=== PATIENT | male | born 1970 | race Caucasian/White ===

== ENCOUNTER 2017-07-24 09:23 | Outpatient (CLI) | payer OTHER ==
[2017-07-24 09:40] LABS: BASOPHILS # (AUTO) 0.1 10^3/uL (0.0-0.1); EOSINOPHILS # (AUTO) 0.4 10^3/uL (0.0-0.7); EOSINOPHILS % (AUTO) 7.2 %; HGB - HEMOGLOBIN 14.4 g/dL (14.0-18.0); LYMPHOCYTES # (AUTO) 1.5 10^3/uL (1.5-3.5); LYMPHOCYTES % (AUTO) 29.5 %; MEAN CORPUSCULAR HEMOGLOBIN 28.1 pg (27.0-31.0); MEAN CORPUSCULAR HGB CONC 34.7 g/dL (32.0-36.0); MEAN CORPUSCULAR VOLUME 80.8 fL (80.0-94.0); MEAN PLATELET VOLUME 6.8 fL (7.4-11.4); MONOCYTES # (AUTO) 0.5 10^3/uL (0.0-1.0); NEUTROPHILS # (AUTO) 2.8 10^3/uL (1.5-6.6); NEUTROPHILS % (AUTO) 53.3 %; PLT - PLATELET COUNT 260 10^3/uL (130-450); RED BLOOD COUNT 5.13 10^6/uL (4.70-6.10); RED CELL DISTRIBUTION WIDTH 14.4 % (12.0-15.0); WHITE BLOOD COUNT 5.2 x10^3/uL (4.8-10.8)
[2017-07-24 10:06] LABS: ALBUMIN 4.1 g/dL (3.2-5.5); ALBUMIN/GLOBULIN RATIO 1.2 (1.0-2.2); ALKALINE PHOSPHATASE 62 IU/L (42-121); ALT ALANINE AMINOTRANSFERASE 30 IU/L (10-60); AST ASPARTATE AMINOTRANSFERASE 24 IU/L (10-42); BILIRUBIN,TOTAL 0.6 mg/dL (0.2-1.0); BUN - BLOOD UREA NITROGEN 30 mg/dL (6-20); CARBON DIOXIDE - CO2 23 mmol/L (21-32); CHLORIDE 104 mmol/L (101-111); CHOL/HDL RATIO 4.1 (<5.0); CHOLESTEROL 192 mg/dL; CREATININE 0.8 mg/dL (0.6-1.2); GFR - MDRD 104 (>89); GLUCOSE 101 mg/dL (70-100); HDL CHOLESTEROL 47 mg/dL; LDL CHOLESTEROL,CALCULATED 127 mg/dL; LDL/HDL RATIO 2.7 (<3.6); SODIUM 136 mmol/L (135-145); TOTAL PROTEIN 7.5 g/dL (6.7-8.2); VLDL CHOLESTEROL 18 mg/dL
== END 2017-07-24 09:24 | disposition home or self-care (01) ==
LOC: LAB 09:23
PROVIDERS: ATTEND Physician Assistant Medical
DX: Z00.00 Encounter for general adult medical examination without abnormal findings (principal); Z12.5 Encounter for screening for malignant neoplasm of prostate
CPT/HCPCS: 36415; 80053; 80061; 83721; 84153; 84443; 85025

== ENCOUNTER 2017-07-30 15:29 | Outpatient (CLI) | payer OTHER ==
--- NOTE | 2017-07-30 16:19 | XRAY Report ---
THREE VIEW LEFT THUMB: 07/30/2017 CLINICAL INDICATION: Laceration. FINDINGS: AP, lateral, and oblique views of the left thumb demonstrate a distal tuft fracture, without intraarticular extension. No foreign body is seen in the soft tissues. IMPRESSION: DISTAL TUFT FRACTURE OF THE LEFT THUMB. TD: 07/30/2017 16:18
== END 2017-07-30 15:30 | disposition home or self-care (01) ==
LOC: DI 15:29
PROVIDERS: ATTEND Physician Assistant Medical
DX: S62.522A Displaced fracture of distal phalanx of left thumb, initial encounter for closed fracture (principal)
CPT/HCPCS: 73140

== ENCOUNTER 2017-09-24 09:14 | Emergency (ER) | payer OTHER ==
--- NOTE | 2017-09-24 09:31 | ED Physician Documentation ---
PD HPI SKIN - Stated complaint Stated Complaint: SPIDER BITE ON FOOT - Chief complaint Chief Complaint: Ext Problem - History obtained from History obtained from: Patient - History of Present Illness Timing - onset: How many days ago (5) Timing - duration: Days (5) Timing - details: Gradual onset, Still present (and has gotten much larger size of redness, and has extra room for the moment.) Review of Systems Constitutional: denies: Fever, Chills, Myalgias Nose: denies: Rhinorrhea / runny nose, Congestion Throat: denies: Dental pain / toothache, Oral lesions / sores PD PAST MEDICAL HISTORY - Past Medical History Past Medical History: Yes Cardiovascular: Hypertension Respiratory: None Neuro: None - Past Surgical History Past Surgical History: Yes General: Appendectomy - Present Medications Home Medications: Ambulatory Orders Medication Instructions Recorded Confirmed Cephalexin [Keflex] 500 mg PO TID #21 capsule 09/24/17 Doxycycline Monohydrate 100 mg PO BID #14 tablet 09/24/17 Lisinopril/Hydrochlorothiazide 1 tab PO DAILY 09/24/17 09/24/17 [Lisinopril-Hctz 20-12.5 mg Tab] - Allergies Allergies/Adverse Reactions: Allergies Allergy/AdvReac Type Severity Reaction Status Date / Time sodium lauryl sulfate Allergy Hives Verified 09/24/17 09:24 - Social History Does the pt smoke?: No Smoking Status: Never smoker Does the pt drink ETOH?: No Does the pt have substance abuse?: No - Immunizations Immunizations are current?: Yes PD ED PE NORMAL - Vitals Vital signs reviewed: Yes - General General: Alert and oriented X 3, No acute distress, Well developed/nourished - Cardiac Cardiac: RRR, No murmur - Respiratory Respiratory: Clear bilaterally - Abdomen Abdomen: Normal bowel sounds, Soft, Non tender, Non distended - Male Male : Deferred - Rectal Rectal: Deferred - Back Back: No CVA TTP Results - Vitals Vitals: Vital Signs - 24 hr 09/24/17 09/24/17 09:19 10:12 Temperature 36.2 C L Heart Rate 78 80 Respiratory 16 20 Rate Blood Pressure 142/93 H 134/86 H O2 Saturation 98 98 Oxygen O2 Source Room air PD MEDICAL DECISION MAKING - ED course Complexity details: considered differential (could be spider bite or other puncture/wound that has gotten infection to it. ), d/w patient Departure - Departure Disposition: 01 Home, Self Care Clinical Impression: Cellulitis of foot without toes Condition: Stable Record reviewed to determine appropriate education?: Yes Instructions: ED Infec Skin Cellulitis Follow-Up: Crystal Bangura PA-C [Primary Care Provider] - Prescriptions: Cephalexin [Keflex] 500 mg PO TID #21 capsule Doxycycline Monohydrate 100 mg PO BID #14 tablet Comments: Elevate the foot and leg often. Warmth such as warm towels or moist warm packs to the area to improve blood flow to help fight off infection and do that a few times a day. Will treat with antibiotics to cover the most common skin infection bacteria; Keflex 3 times a day for a week and doxycycline 2 times a day for a week. Tylenol or ibuprofen if needed for pains. Recheck if not improved well over the next 2-3 days return sooner if worsening. Forms: Activity restrictions Discharge Date/Time: 09/24/17 10:20
[2017-09-24] MEDS ORDERED: cephALEXin 250 MG CAPSULE PO STA (09:50)
[2017-09-24] MEDS ORDERED: DOXYCYCLINE 100 MG TABLET PO STA (09:50)
[2017-09-24 10:13] VITALS: BP 134/86
== END 2017-09-24 10:20 | disposition home or self-care (01) ==
LOC: ED 09:14
DX: L03.119 Cellulitis of unspecified part of limb (principal); I10 Essential (primary) hypertension
CPT/HCPCS: 99283; A9270

== ENCOUNTER 2018-07-16 07:38 | Outpatient (CLI) | payer OTHER ==
[2018-07-16 08:17] LABS: ALBUMIN 4.2 g/dL (3.2-5.5); ALBUMIN/GLOBULIN RATIO 1.1 (1.0-2.2); ALKALINE PHOSPHATASE 60 IU/L (42-121); ALT ALANINE AMINOTRANSFERASE 34 IU/L (10-60); AST ASPARTATE AMINOTRANSFERASE 25 IU/L (10-42); BUN - BLOOD UREA NITROGEN 20 mg/dL (6-20); CALCIUM 9.2 mg/dL (8.5-10.3); CARBON DIOXIDE - CO2 24 mmol/L (21-32); CHLORIDE 99 mmol/L (101-111); CHOL/HDL RATIO 3.4 (<5.0); CHOLESTEROL 172 mg/dL; CREATININE 0.8 mg/dL (0.6-1.2); GFR - MDRD 103 (>89); GLUCOSE 109 mg/dL (70-100); HDL CHOLESTEROL 51 mg/dL; SODIUM 133 mmol/L (135-145); TOTAL PROTEIN 7.9 g/dL (6.7-8.2)
[2018-07-16 08:18] LABS: BASOPHILS % (AUTO) 0.5 %; EOSINOPHILS # (AUTO) 0.2 10^3/uL (0.0-0.7); EOSINOPHILS % (AUTO) 1.8 %; HGB - HEMOGLOBIN 13.7 g/dL (14.0-18.0); LYMPHOCYTES # (AUTO) 1.3 10^3/uL (1.5-3.5); LYMPHOCYTES % (AUTO) 15.1 %; MEAN CORPUSCULAR HEMOGLOBIN 28.6 pg (27.0-31.0); MEAN CORPUSCULAR HGB CONC 34.8 g/dL (32.0-36.0); MEAN CORPUSCULAR VOLUME 82.2 fL (80.0-94.0); MEAN PLATELET VOLUME 7.2 fL (7.4-11.4); MONOCYTES # (AUTO) 0.9 10^3/uL (0.0-1.0); MONOCYTES % (AUTO) 10.4 %; NEUTROPHILS # (AUTO) 6.4 10^3/uL (1.5-6.6); NEUTROPHILS % (AUTO) 72.2 %; PLT - PLATELET COUNT 271 10^3/uL (130-450); RED BLOOD COUNT 4.77 10^6/uL (4.70-6.10); RED CELL DISTRIBUTION WIDTH 14.1 % (12.0-15.0); WHITE BLOOD COUNT 8.8 x10^3/uL (4.8-10.8)
[2018-07-16 08:36] LABS: LDL CHOLESTEROL,DIRECT 115 mg/dL; LDLD/HDL RATIO 2.3 (<3.6)
== END 2018-07-16 07:39 | disposition home or self-care (01) ==
LOC: LAB 07:38
PROVIDERS: ATTEND Physician Assistant Medical
DX: Z00.00 Encounter for general adult medical examination without abnormal findings (principal); I10 Essential (primary) hypertension; Z12.5 Encounter for screening for malignant neoplasm of prostate
CPT/HCPCS: 36415; 80053; 80061; 83721; 84153; 84443; 85025

== ENCOUNTER 2018-08-23 08:00 | Outpatient (CLI) | payer OTHER ==
[2018-08-23 19:24] LABS: MEAN CORPUSCULAR HEMOGLOBIN 28.3 pg (27.0-31.0); MEAN CORPUSCULAR HGB CONC 34.7 g/dL (32.0-36.0); MEAN CORPUSCULAR VOLUME 81.4 fL (80.0-94.0); MEAN PLATELET VOLUME 7.7 fL (7.4-11.4); RED BLOOD COUNT 4.58 10^6/uL (4.70-6.10); RED CELL DISTRIBUTION WIDTH 14.9 % (12.0-15.0); WHITE BLOOD COUNT 9.3 x10^3/uL (4.8-10.8)
[2018-08-23 19:35] LABS: FERRITIN 162.3 ng/mL (23.9-336.2)
[2018-08-23 19:39] LABS: % IRON SATURATION 13 % (20-50); IRON 42 ug/dL (45-182); TOTAL IRON BINDING CAPACITY 316 ug/dL (250-450); TRANSFERRIN 226 mg/dL (180-329)
== END 2018-08-23 23:59 | disposition home or self-care (01) ==
LOC: LAB.WCP 08:00
PROVIDERS: ATTEND Physician Assistant Medical
DX: D64.9 Anemia, unspecified (principal)
CPT/HCPCS: 36415; 82607; 82728; 82746; 83540; 84466; 85027

== ENCOUNTER 2018-09-05 11:57 | Day surgery (SDC) | payer OTHER ==
[~2018-09-05 11:57] MED LIST: LIDO GARGLE 30 ML BOTTLE ONE
[2018-09-05] MEDS ORDERED: LACTATED RINGERS 1,000 ML IV ONE (12:30)
[2018-09-05] MEDS ORDERED: fentaNYL 250 MCG/5 ML VIAL IVP ONE (12:39)
[2018-09-05] MEDS ORDERED: MIDAZOLAM 2 MG/2 ML VIAL IVP ONE (12:39)
[2018-09-05] MEDS ORDERED: LIDO GARGLE 30 ML BOTTLE PO ONE (13:00)
[2018-09-05] MEDS ORDERED: BENZOCAINE/TETRACAINE/BUTAMBEN 20 GM MM ONE (13:00)
[2018-09-05 13:46] VITALS: BP 110/71
== END 2018-09-05 11:58 | disposition home or self-care (01) ==
LOC: SDS 11:57
PROVIDERS: ATTEND Surgery
PROC: 0DB68ZX Excision of Stomach, Via Natural or Artificial Opening Endoscopic, Diagnostic (ICD-10-PCS; 2018-09-05)
PROC: 0DB58ZX Excision of Esophagus, Via Natural or Artificial Opening Endoscopic, Diagnostic (ICD-10-PCS; 2018-09-05)
PROC: 0DBN8ZX Excision of Sigmoid Colon, Via Natural or Artificial Opening Endoscopic, Diagnostic (ICD-10-PCS; principal; 2018-09-05 13:30)
PROC: 0DB98ZX Excision of Duodenum, Via Natural or Artificial Opening Endoscopic, Diagnostic (ICD-10-PCS; 2018-09-05 13:30)
DX: D50.9 Iron deficiency anemia, unspecified (principal); D12.7 Benign neoplasm of rectosigmoid junction; K64.8 Other hemorrhoids; K29.70 Gastritis, unspecified, without bleeding; K29.80 Duodenitis without bleeding; K20.9 Esophagitis, unspecified; I10 Essential (primary) hypertension; Z80.0 Family history of malignant neoplasm of digestive organs; Z87.891 Personal history of nicotine dependence
CPT/HCPCS: 43239; 45380; 87081; A9270; J3010; J7120

== ENCOUNTER 2018-10-15 08:36 | Outpatient (CLI) | payer OTHER ==
[2018-10-15 09:22] LABS: CALCIUM 9.4 mg/dL (8.5-10.3); CREATININE 0.7 mg/dL (0.6-1.2)
[2018-10-15 09:31] LABS: HB2 TOTAL 14.7 g/dL; HEMOGLOBIN A1C 0.5 g/dL; HEMOGLOBIN A1C % 5.3 % (4.6-6.2)
== END 2018-10-15 08:37 | disposition home or self-care (01) ==
LOC: LAB 08:36
PROVIDERS: ATTEND Physician Assistant Medical
DX: R73.9 Hyperglycemia, unspecified (principal)
CPT/HCPCS: 36415; 80048; 83036

== ENCOUNTER 2019-09-22 07:00 | Outpatient (CLI) | payer OTHER ==
[2019-09-22 12:53] LABS: BASOPHILS % (AUTO) 0.8 %; EOSINOPHILS # (AUTO) 0.3 10^3/uL (0.0-0.7); EOSINOPHILS % (AUTO) 5.1 %; HGB - HEMOGLOBIN 13.7 g/dL (14.0-18.0); LYMPHOCYTES # (AUTO) 1.6 10^3/uL (1.5-3.5); LYMPHOCYTES % (AUTO) 30.7 %; MEAN CORPUSCULAR HEMOGLOBIN 27.7 pg (27.0-31.0); MEAN CORPUSCULAR HGB CONC 32.2 g/dL (32.0-36.0); MEAN PLATELET VOLUME 9.5 fL (7.4-11.4); MONOCYTES # (AUTO) 0.5 10^3/uL (0.0-1.0); MONOCYTES % (AUTO) 9.4 %; NEUTROPHILS # (AUTO) 2.7 10^3/uL (1.5-6.6); NEUTROPHILS % (AUTO) 53.8 %; PLT - PLATELET COUNT 268 10^3/uL (130-450); RED BLOOD COUNT 4.94 10^6/uL (4.70-6.10); RED CELL DISTRIBUTION WIDTH 14.3 % (12.0-15.0); WHITE BLOOD COUNT 5.1 x10^3/uL (4.8-10.8)
[2019-09-22 13:15] LABS: ALBUMIN 3.8 g/dL (3.2-5.5); ALBUMIN/GLOBULIN RATIO 1.1 (1.0-2.2); ALKALINE PHOSPHATASE 60 IU/L (42-121); ALT ALANINE AMINOTRANSFERASE 34 IU/L (10-60); AST ASPARTATE AMINOTRANSFERASE 24 IU/L (10-42); BILIRUBIN,TOTAL 0.6 mg/dL (0.2-1.0); BUN - BLOOD UREA NITROGEN 21 mg/dL (6-20); CALCIUM 8.8 mg/dL (8.5-10.3); CARBON DIOXIDE - CO2 21 mmol/L (21-32); CHLORIDE 108 mmol/L (101-111); CHOL/HDL RATIO 4.1 (<5.0); CHOLESTEROL 171 mg/dL; CREATININE 0.8 mg/dL (0.6-1.2); GLUCOSE 89 mg/dL (70-100); HDL CHOLESTEROL 42 mg/dL; LDL CHOLESTEROL,CALCULATED 109 mg/dL; LDL/HDL RATIO 2.6 (<3.6); SODIUM 139 mmol/L (135-145); TOTAL PROTEIN 7.3 g/dL (6.7-8.2); VLDL CHOLESTEROL 20 mg/dL
[2019-09-22 14:07] LABS: HB2 TOTAL 14.1 g/dL; HEMOGLOBIN A1C 0.49 g/dL; HEMOGLOBIN A1C % 5.3 % (4.6-6.2)
== END 2019-09-22 23:59 | disposition home or self-care (01) ==
LOC: LAB.WCP 07:00
PROVIDERS: ATTEND Physician Assistant Medical
DX: I10 Essential (primary) hypertension (principal); R73.9 Hyperglycemia, unspecified; Z12.5 Encounter for screening for malignant neoplasm of prostate; D64.9 Anemia, unspecified
CPT/HCPCS: 36415; 80053; 80061; 83036; 83721; 84153; 85025

== ENCOUNTER 2020-04-01 16:27 | Outpatient (CLI) | payer OTHER | END 2020-04-01 16:28 | disposition home or self-care (01) | LOC: COV 16:27 | PROVIDERS: ATTEND Surgery | DX: Z01.812 Encounter for preprocedural laboratory examination (principal); Z20.828 Contact with and (suspected) exposure to other viral communicable diseases; K42.9 Umbilical hernia without obstruction or gangrene ==

== ENCOUNTER 2020-04-04 09:13 | Outpatient (CLI) | payer OTHER | END 2020-04-04 09:14 | disposition home or self-care (01) | LOC: LAB 09:13 | PROVIDERS: ATTEND Surgery | DX: Z20.828 Contact with and (suspected) exposure to other viral communicable diseases (principal) ==

== ENCOUNTER 2020-04-04 10:41 | Day surgery (SDC) | payer OTHER ==
[~2020-04-04 10:41] MED LIST changes: +BUPIVACAINE 0.5% PF 30 ML VIAL ONE; +CEFAZOLIN SODIUM IN 0.9 % NACL 2 GM/100 ML BAG IV ONE; -LIDO GARGLE 30 ML BOTTLE ONE
[2020-04-04] MEDS ORDERED: BUPIVACAINE 0.5% PF 30 ML VIAL SUBQ ONE ×2 (11:00→12:01)
[2020-04-04] MEDS ORDERED: LACTATED RINGERS 1,000 ML IV ONE ×2 (11:09→12:21)
[2020-04-04] MEDS ORDERED: LIDOCAINE-MPF 2% 5 ML VIAL IM ONE (11:15)
[2020-04-04] MEDS ORDERED: DEXAMETHASONE 4 MG/ML VIAL IVP ONE (11:15)
[2020-04-04] MEDS ORDERED: fentaNYL 100 MCG/2 ML VIAL IVP ONE (11:15)
[2020-04-04] MEDS ORDERED: ONDANSETRON 4 MG/2 ML VIAL IVP ONE (11:15)
--- NOTE | 2020-04-04 11:21 | ANESTHESIA ---
Pre-Anesthesia VS, & Labs - Diagnosis Umbilical Hernia - Procedure umbilical hernia repair Vital Signs: Temp Pulse Resp BP Pulse Ox 36.2 C L 77 16 139/110 H 97 04/04/20 10:56 04/04/20 10:56 04/04/20 10:56 04/04/20 10:56 04/04/20 10:56 Height: 6 ft Weight (kg): 115.5 kg Body Mass Index: 34.5 BMI Classification: Obese - NPO >8 hours Home Medications and Allergies Home Medications: Ambulatory Orders Omeprazole 20 mg PO DAILY 04/03/20 Ibuprofen 2 PRN 04/04/20 Lisinopril/Hydrochlorothiazide [Lisinopril-Hctz 20-12.5 mg Tab] 1 tab PO DAILY 09/24/17 Naproxen Sodium [Aleve] 2 cap PO DAILY 09/02/18 [place]-3/Dha/Epa/Fish Oil [Fish Oil 1,000 mg Softgel] 1 cap PO DAILY 09/02/18 Multivitamin [Multivitamins] 1 each PO DAILY 09/05/18 Omeprazole 20 mg PO DAILY 04/03/20 Ibuprofen 2 PRN 04/04/20 Allergies/Adverse Reactions: Allergies Allergy/AdvReac Type Severity Reaction Status Date / Time sodium lauryl sulfate Allergy Hives Verified 09/24/17 09:24 cloth tape AdvReac Rash Uncoded 09/02/18 14:09 Anes History & Medical History - Anesthetic History Anesthesia Complications: reports: No previous complications Family history of Anesthesia Complications: Denies Family history of Malignant Hyperthermia: Denies - Medical History Cardiovascular: reports: Hypertension Pulmonary: reports: None Gastrointestinal: reports: None, GERD (well controlled on prilosec) Urinary: reports: None Musculoskeletal: reports: Osteoarthritis Endocrine/Autoimmune: reports: Other Skin: reports: None Smoking Status: Never smoker - Surgical History General: Appendectomy Urologic: Testicular surgery Exam General: Alert, No acute distress Dental: WNL Mouth Opening: Greater than 4 Fingerbreadths Neck Mobility: Normal Mallampati classification: II Thyromental Distance: 4-6 cm Respiratory: Lungs clear, Normal breath sounds, No respiratory distress, No accessory muscle use Cardiovascular: Regular rate, Normal S1, Normal S2, No murmurs Cognitive Status: Within normal limits Plan Anesthesia Type: General Consent for Procedure(s) Verified and Reviewed: Yes Code Status: Attempt Resuscitation ASA classification: 2-Mild systemic disease Is this case an emergency?: No
[2020-04-04] MEDS ORDERED: METOCLOPRAMIDE 10 MG/2 ML VIAL IVP PRN (11:22)
[2020-04-04] MEDS ORDERED: HYDROmorphone 0.5 MG/0.5 ML SYRINGE IVP PRN (11:22)
[2020-04-04] MEDS ORDERED: ONDANSETRON 4 MG/2 ML VIAL IVP PRN (11:22)
[2020-04-04] MEDS ORDERED: NALOXONE 0.4 MG/ML VIAL IVP PRN (11:22)
[2020-04-04] MEDS ORDERED: MORPHINE 2 MG/ML CARPUJECT IVP PRN (11:22)
[2020-04-04] MEDS ORDERED: ePHEDrine 50 MG/ML VIAL IVP PRN (11:22)
[2020-04-04] MEDS ORDERED: fentaNYL 100 MCG/2 ML VIAL IVP PRN (11:22)
[2020-04-04] MEDS ORDERED: ATROPINE ABBOJECT 1 MG/10 ML SYRINGE IVP PRN (11:22)
[2020-04-04] MEDS ORDERED: LACTATED RINGERS 1,000 ML IV SCH (12:00)
--- NOTE | 2020-04-04 12:26 | OPERATIVE REPORT ---
Operative Report - General Procedure Date: 04/04/20 Planned Procedure: Umbilical herniorrhaphy Pre-Op Diagnosis: Umbilical hernia Procedure Performed: Umbilical herniorrhaphy with mesh (Ventralex ST Hernia Patch (reference #[id number] by 2021-06-27) Post Op Diagnosis: Umbilical hernia - Procedure Note Primary Surgeon: Angel Kaur MD Anesthesia Provider: MD Zeyad Anesthesia Technique: General LMA, Local (30 mL 1/2% marcaine) IV Fluids (mL): 500 Estimated Blood Loss (mL): 2 Drain/Tube Type: Other (None) Complications: None. - Other Other Information/Narrative: See report to follow as dictation on [employer] has been disabled.
[2020-04-04] MEDS ORDERED: HYDROcod/ACETAM 5/325 MG TABLET PO PRN ×2 (12:30→12:36)
[2020-04-04] MEDS ORDERED: HYDROmorphone 0.5 MG/0.5 ML SYRINGE ONE (12:40)
[2020-04-04] MEDS ORDERED: KETOROLAC 30 MG/ML VIAL IVP ONE (13:15)
[2020-04-04] MEDS ORDERED: KETOROLAC 30 MG/ML VIAL ONE (13:24)
[2020-04-04 13:31] VITALS: BP 137/85
== END 2020-04-04 10:42 | disposition home or self-care (01) ==
LOC: SDS 10:41
PROVIDERS: ATTEND Surgery
DX: K42.9 Umbilical hernia without obstruction or gangrene (principal); Z20.828 Contact with and (suspected) exposure to other viral communicable diseases; I10 Essential (primary) hypertension; K21.9 Gastro-esophageal reflux disease without esophagitis; M19.90 Unspecified osteoarthritis, unspecified site; Z79.1 Long term (current) use of non-steroidal anti-inflammatories (NSAID)
CPT/HCPCS: 49585; 87635; C1781; J0690; J1170; J7120

== ENCOUNTER 2020-10-05 10:21 | Outpatient (CLI) | payer OTHER ==
[2020-10-05 13:57] LABS: BASOPHILS % (AUTO) 0.7 %; EOSINOPHILS # (AUTO) 0.3 10^3/uL (0.0-0.7); EOSINOPHILS % (AUTO) 6.9 %; HCT - HEMATOCRIT 43.1 % (42.0-52.0); LYMPHOCYTES # (AUTO) 1.1 10^3/uL (1.5-3.5); LYMPHOCYTES % (AUTO) 26.7 %; MEAN CORPUSCULAR HEMOGLOBIN 27.8 pg (27.0-31.0); MEAN CORPUSCULAR HGB CONC 32.5 g/dL (32.0-36.0); MEAN CORPUSCULAR VOLUME 85.7 fL (80.0-94.0); MEAN PLATELET VOLUME 9.6 fL (7.4-11.4); MONOCYTES # (AUTO) 0.4 10^3/uL (0.0-1.0); MONOCYTES % (AUTO) 10.5 %; NEUTROPHILS # (AUTO) 2.2 10^3/uL (1.5-6.6); PLT - PLATELET COUNT 255 10^3/uL (130-450); RED BLOOD COUNT 5.03 10^6/uL (4.70-6.10); RED CELL DISTRIBUTION WIDTH 14.1 % (12.0-15.0); WHITE BLOOD COUNT 4.1 x10^3/uL (4.8-10.8)
[2020-10-05 14:17] LABS: ALBUMIN 4.3 g/dL (3.2-5.5); ALBUMIN/GLOBULIN RATIO 1.3 (1.0-2.2); ALKALINE PHOSPHATASE 62 IU/L (42-121); ALT ALANINE AMINOTRANSFERASE 31 IU/L (10-60); AST ASPARTATE AMINOTRANSFERASE 24 IU/L (10-42); BILIRUBIN,TOTAL 0.5 mg/dL (0.2-1.0); BUN - BLOOD UREA NITROGEN 23 mg/dL (6-20); CALCIUM 9.2 mg/dL (8.5-10.3); CARBON DIOXIDE - CO2 25 mmol/L (21-32); CHLORIDE 103 mmol/L (101-111); CHOL/HDL RATIO 4.2 (<5.0); CHOLESTEROL 194 mg/dL; CREATININE 0.8 mg/dL (0.6-1.2); GFR - MDRD 102 (>89); GLUCOSE 97 mg/dL (70-100); HDL CHOLESTEROL 46 mg/dL; LDL CHOLESTEROL,CALCULATED 137 mg/dL; POTASSIUM 4.6 mmol/L (3.5-5.0); SODIUM 137 mmol/L (135-145); TOTAL PROTEIN 7.7 g/dL (6.7-8.2); TRIGLYCERIDES 57 mg/dL; VLDL CHOLESTEROL 11 mg/dL
[2020-10-05 15:00] LABS: THYROID STIMULATING HORMONE 2.79 uIU/mL (0.34-5.60)
== END 2020-10-05 10:22 | disposition home or self-care (01) ==
LOC: LAB.N 10:21
PROVIDERS: ATTEND Physician Assistant Medical
DX: Z00.00 Encounter for general adult medical examination without abnormal findings (principal); I10 Essential (primary) hypertension; Z12.5 Encounter for screening for malignant neoplasm of prostate; D64.9 Anemia, unspecified
CPT/HCPCS: 36415; 80053; 80061; 83721; 84153; 84443; 85025

== ENCOUNTER 2021-01-14 17:48 | Outpatient (CLI) | payer OTHER ==
--- NOTE | 2021-01-14 18:39 | XRAY Report ---
PROCEDURE: Knee 3 View LT INDICATIONS: SPRAIN OF L KNEE TECHNIQUE: 3 views of the left knee(s) were acquired. COMPARISON: None. FINDINGS: Bones: No fractures or dislocations. No suspicious bony lesions. Soft tissues: No joint effusion. No suspicious soft tissue calcifications. IMPRESSION: Minimal medial compartment degenerative knee joint space narrowing. No trauma found. Reviewed by: Amador Infante MD on 01/14/2021 6:38 PM PDT Approved by: Amador Infante MD on 01/14/2021 6:38 PM PDT Station ID: [id number]
== END 2021-01-14 23:59 | disposition home or self-care (01) ==
LOC: DI.N 17:48
PROVIDERS: ATTEND Physician Assistant Medical
DX: S83.92XA Sprain of unspecified site of left knee, initial encounter (principal); M17.12 Unilateral primary osteoarthritis, left knee

== ENCOUNTER 2021-02-21 09:38 | Outpatient (CLI) | payer OTHER | END 2021-02-21 09:39 | disposition home or self-care (01) | LOC: COV 09:38 | PROVIDERS: ATTEND Family Medicine | DX: Z20.822 Contact with and (suspected) exposure to COVID-19 (principal) ==

== ENCOUNTER 2021-10-18 11:08 | Outpatient (CLI) | payer OTHER ==
[2021-10-18 19:46] LABS: BASOPHILS % (AUTO) 0.9 %; EOSINOPHILS # (AUTO) 0.2 10^3/uL (0.0-0.7); EOSINOPHILS % (AUTO) 4.6 %; HCT - HEMATOCRIT 43.5 % (42.0-52.0); HGB - HEMOGLOBIN 14.4 g/dL (14.0-18.0); LYMPHOCYTES # (AUTO) 1.5 10^3/uL (1.5-3.5); LYMPHOCYTES % (AUTO) 32.2 %; MEAN CORPUSCULAR HEMOGLOBIN 28.5 pg (27.0-31.0); MEAN CORPUSCULAR HGB CONC 33.1 g/dL (32.0-36.0); MEAN PLATELET VOLUME 9.6 fL (7.4-11.4); MONOCYTES # (AUTO) 0.5 10^3/uL (0.0-1.0); MONOCYTES % (AUTO) 10.4 %; NEUTROPHILS # (AUTO) 2.4 10^3/uL (1.5-6.6); NEUTROPHILS % (AUTO) 51.7 %; PLT - PLATELET COUNT 302 10^3/uL (130-450); RED BLOOD COUNT 5.06 10^6/uL (4.70-6.10); RED CELL DISTRIBUTION WIDTH 14.4 % (12.0-15.0); WHITE BLOOD COUNT 4.5 x10^3/uL (4.8-10.8)
[2021-10-18 20:01] LABS: ALBUMIN 4.3 g/dL (3.2-5.5); ALBUMIN/GLOBULIN RATIO 1.3 (1.0-2.2); ALKALINE PHOSPHATASE 64 IU/L (42-121); ALT ALANINE AMINOTRANSFERASE 33 IU/L (10-60); AST ASPARTATE AMINOTRANSFERASE 22 IU/L (10-42); BILIRUBIN,TOTAL 0.6 mg/dL (0.2-1.0); BUN - BLOOD UREA NITROGEN 16 mg/dL (6-20); CALCIUM 9.6 mg/dL (8.5-10.3); CARBON DIOXIDE - CO2 27 mmol/L (21-32); CHLORIDE 100 mmol/L (101-111); CHOL/HDL RATIO 3.6 (<5.0); CHOLESTEROL 174 mg/dL; CREATININE 0.9 mg/dL (0.6-1.2); GFR - MDRD 89 (>89); GLUCOSE 89 mg/dL (70-100); HDL CHOLESTEROL 48 mg/dL; LDL CHOLESTEROL,CALCULATED 106 mg/dL; LDL/HDL RATIO 2.2 (<3.6); POTASSIUM 4.5 mmol/L (3.5-5.0); SODIUM 135 mmol/L (135-145); TOTAL PROTEIN 7.7 g/dL (6.7-8.2); TRIGLYCERIDES 99 mg/dL; VLDL CHOLESTEROL 20 mg/dL
[2021-10-18 20:10] LABS: THYROID STIMULATING HORMONE 2.79 uIU/mL (0.34-5.60)
== END 2021-10-18 11:09 | disposition home or self-care (01) ==
LOC: LAB.N 11:08
PROVIDERS: ATTEND Physician Assistant Medical
DX: R73.9 Hyperglycemia, unspecified (principal); I10 Essential (primary) hypertension; Z12.5 Encounter for screening for malignant neoplasm of prostate; D64.9 Anemia, unspecified
CPT/HCPCS: 36415; 80053; 80061; 83721; 84153; 84443; 85025

== ENCOUNTER 2023-04-12 08:17 | Outpatient (CLI) | payer OTHER ==
[2023-04-12 12:39] LABS: BASOPHILS # (AUTO) 0.1 10^3/uL (0.0-0.1); BASOPHILS % (AUTO) 0.9 %; EOSINOPHILS # (AUTO) 0.2 10^3/uL (0.0-0.7); EOSINOPHILS % (AUTO) 3.5 %; HCT - HEMATOCRIT 41.8 % (42.0-52.0); HGB - HEMOGLOBIN 13.7 g/dL (14.0-18.0); LYMPHOCYTES # (AUTO) 1.3 10^3/uL (1.5-3.5); LYMPHOCYTES % (AUTO) 23.6 %; MEAN CORPUSCULAR HGB CONC 32.8 g/dL (32.0-36.0); MEAN CORPUSCULAR VOLUME 85.3 fL (80.0-94.0); MEAN PLATELET VOLUME 9.8 fL (7.4-11.4); MONOCYTES # (AUTO) 0.5 10^3/uL (0.0-1.0); NEUTROPHILS # (AUTO) 3.3 10^3/uL (1.5-6.6); NEUTROPHILS % (AUTO) 61.4 %; PLT - PLATELET COUNT 286 10^3/uL (130-450); RED CELL DISTRIBUTION WIDTH 14.6 % (12.0-15.0); WHITE BLOOD COUNT 5.4 x10^3/uL (4.8-10.8)
[2023-04-12 12:52] LABS: ALBUMIN 4.5 g/dL (3.2-5.5); ALBUMIN/GLOBULIN RATIO 1.7 (1.0-2.2); ALKALINE PHOSPHATASE 62 IU/L (42-121); ALT ALANINE AMINOTRANSFERASE 26 IU/L (10-60); AST ASPARTATE AMINOTRANSFERASE 17 IU/L (10-42); BILIRUBIN,TOTAL 0.3 mg/dL (0.2-1.0); BUN - BLOOD UREA NITROGEN 22 mg/dL (6-20); CALCIUM 9.6 mg/dL (8.5-10.3); CARBON DIOXIDE - CO2 29 mmol/L (21-32); CHLORIDE 103 mmol/L (101-111); CHOL/HDL RATIO 3.5 (<5.0); CHOLESTEROL 156 mg/dL; CREATININE 0.7 mg/dL (0.6-1.3); GFR - MDRD 118 (>89); GLUCOSE 97 mg/dL (74-104); HDL CHOLESTEROL 45 mg/dL; LDL CHOLESTEROL,CALCULATED 101 mg/dL; LDL/HDL RATIO 2.2 (<3.6); POTASSIUM 4.4 mmol/L (3.5-4.5); SODIUM 137 mmol/L (135-145); TOTAL PROTEIN 7.2 g/dL (6.4-8.9); TRIGLYCERIDES 48 mg/dL (48-352); VLDL CHOLESTEROL 10 mg/dL
== END 2023-04-12 08:18 | disposition home or self-care (01) ==
LOC: LAB.N 08:17
PROVIDERS: ATTEND Physician Assistant Medical
DX: I10 Essential (primary) hypertension (principal); R73.9 Hyperglycemia, unspecified; Z79.899 Other long term (current) drug therapy; Z13.220 Encounter for screening for lipoid disorders; R68.82 Decreased libido; Z12.5 Encounter for screening for malignant neoplasm of prostate
CPT/HCPCS: 36415; 80053; 80061; 83721; 84153; 85025